=== PATIENT | male | born 1975 | race Caucasian/White ===

== ENCOUNTER 2017-12-07 09:43 | Emergency (ER) | END 2017-12-07 12:27 | disposition home or self-care (01) ==

== ENCOUNTER 2017-12-07 17:47 | Emergency (ER) | END 2017-12-08 00:10 | disposition left against medical advice (07) ==

== ENCOUNTER 2019-04-07 07:17 | Emergency (ER) | payer OTHER ==
[~2019-04-07] VITALS: Wt 90.0 kg
[~2019-04-07 07:17] MED LIST: NAPR-985 PO
[2019-04-07 07:20] VITALS: BP 121/78; PULSE 80; RESP 18
[2019-04-07] MEDS ORDERED: ONDA4TAB14 PO (07:43)
[2019-04-07] MEDS ORDERED: LOPE2CAP PO (07:43)
[2019-04-07] MEDS ORDERED: ACET500C5 PO (07:43)
[2019-04-07] MEDS ORDERED: ONDANSETRON (ODT) 4 MG TAB ODT STA (07:57)
[2019-04-07] MEDS ORDERED: ACETAMINOPHEN 500 MG TAB PO STA (07:57)
--- NOTE | 2019-04-07 09:57 | ERD ---
ER Documentation Chief Complaint Chief Complaint DIARRHEA FOR 3 DAYS WITH MILD INTERMITTENT CRAMPING. NO N/V. NO FEVERS HPI 43-year-old male presenting with diarrhea x3 days. Patient had some intermittent abdominal cramping with no fevers. No vomiting. Took Kaopectate yesterday with no alleviation of symptoms. Denies any bloody stools. He states that the cramping comes and goes. Denies any back pain. Medical history is diabetes and hypertension. NKDA. Surgical history denies. Social history denies ROS All systems reviewed and are negative except as per history of present illness. Medications Home Meds Active Scripts Acetaminophen* (Tylophen*) 500 Mg Capsule, 2 CAP PO Q8H PRN for PAIN AND OR ELEVATED TEMP, #20 CAP Prov:SHARAD RICHARD PA-C 04/07/19 Ondansetron (Ondansetron Odt) 4 Mg Tab.rapdis, 4 MG PO Q6H PRN for NAUSEA AND/OR VOMITING, #10 TAB Prov:SHARAD RICHARD PA-C 04/07/19 Loperamide Hcl* (Imodium*) 2 Mg Capsule, 2 MG PO .AFTER EA LOOSE BM PRN for DIARRHEA, #10 TAB Prov:SHARAD RICHARD PA-C 04/07/19 Naproxen* (Naprosyn*) 500 Mg Tablet, 500 MG PO BID PRN for PAIN AND/OR INFLAMMATION, #30 TAB Prov:SHARAD RICHARD PA-C 10/22/16 Allergies Allergies: Coded Allergies: No Known Allergy (Unverified , 04/07/19) PMhx/Soc Medical and Surgical Hx: pt denies Surgical Hx History of Surgery: No Hx Cardiac Disorders: Yes (HTN) Hx Alcohol Use: No Hx Substance Use: No Hx Tobacco Use: No Smoking Status: Never smoker FmHx Family History: No diabetes, No coronary disease, No other Physical Exam Vitals Vital Signs Date Temp Pulse Resp B/P (MAP) Pulse Ox O2 O2 Flow FiO2 Time Delivery Rate 04/07/19 98.1 80 18 121/78 98 07:20 (92) Physical Exam GENERAL: The patient is well-appearing, well-nourished, in no acute distress HEENT: Atraumatic. Conjunctivae are pink. Pupils equal, round, and reactive to light. There is no scleral icterus. Tympanic membranes clear bilaterally. Oropharynx clear. CHEST: Clear to auscultation bilaterally. There are no rales, wheezes or rhonchi. HEART: Regular rate and rhythm. No murmurs, clicks, rubs or gallops. ABDOMEN:Soft, nontender and nondistended. Good bowel sounds. No rebound or guarding. No gross peritonitis. No gross organomegaly or masses. Results 24 hrs Current Medications Medications Dose Sig/Hector Start Time Status Last (Trade) Ordered Route PRN Stop Time Admin Dose Reason Admin Ondansetron 4 mg ONCE STAT 04/07/19 DC 04/07/19 HCl (Zofran ODT 07:57 08:00 Odt) 04/07/19 07:58 1,000 mg ONCE STAT 04/07/19 DC 04/07/19 Acetaminophen PO 07:57 08:00 (Tylenol 04/07/19 07:58 Tab) Procedures/MDM MDM: 43-year-old male presenting with diarrhea. Patient abdominal exam is non- concerning. Vitals are stable. I have low suspicion for acute abdominal emergency and I do not feel blood work or imaging is indicated. Patient likely has viral irritation. Patient is discharged with strict ER precautions. All questions answered at discharge Departure Diagnosis: Primary Impression: Diarrhea Condition: Stable Patient Instructions: Treating Diarrhea Referrals: COUNTS INCLUDE 234 BEDS AT THE [facility] YOU HAVE RECEIVED A MEDICAL SCREENING EXAM AND THE RESULTS INDICATE THAT YOU DO NOT HAVE A CONDITION THAT REQUIRES URGENT TREATMENT IN THE EMERGENCY DEPARTMENT. FURTHER EVALUATION AND TREATMENT OF YOUR CONDITION CAN WAIT UNTIL YOU ARE SEEN IN YOUR DOCTORS OFFICE WITHIN THE NEXT 1-2 DAYS. IT IS YOUR RESPONSIBILITY TO MAKE AN APPOINTMENT FOR FOLOW-UP CARE. IF YOU HAVE A PRIMARY DOCTOR --you should call your primary doctor and schedule an appointment IF YOU DO NOT HAVE A PRIMARY DOCTOR YOU CAN CALL OUR PHYSICIAN REFERRAL HOTLINE AT IF YOU CAN NOT AFFORD TO SEE A PHYSICIAN YOU CAN CHOSE FROM THE FOLLOWING [facility] [address] [facility] [address] [facility] [address] [facility] [address] [facility]. [facility] [address] [facility]. [facility] [address] Additional Instructions: FOLLOW UP WITH YOUR PRIMARY CARE PHYSICIAN TOMORROW.Return to this facility if you are not improving as expected. SHARAD RICHARD PA-C April 07, 2019 09:57
== END 2019-04-07 08:02 | disposition home or self-care (01) ==
LOC: FTE 07:17
DX: R19.7 Diarrhea, unspecified (principal); I10 Essential (primary) hypertension; E11.9 Type 2 diabetes mellitus without complications
CPT/HCPCS: 99283